=== PATIENT | male | born 1945 | race African-American/Black ===

== ENCOUNTER 2017-12-25 13:25 | Inpatient (IN) | payer MEDICARE, MEDICAID ==
[~2017-12-25] VITALS: Ht 177.8 cm; Wt 68.0 kg
--- NOTE | 2017-12-25 13:47 | NUR ---
PT DOES NOT REMEMBER HIS HOME MEDICATION NAMES.
--- NOTE | 2017-12-25 14:07 | NUR ---
URINE SENT/BLOOD DRAWN
[2017-12-25 14:32] LABS: *BILIRUBIN,URIN NEGATIVE (NEGATIVE); *BLOOD, URINE 1+ (NEGATIVE); *COLOR,URINE YELLOW (YELLOW); *KETONES,URINE NEGATIVE (NEGATIVE); *PROTEIN,URINE 2+ (NEGATIVE); *UROBILINOGEN,URINE 0.2 E.U./dl (NORMAL); LEUKOCYTE ESTERASE ,URINE NEGATIVE (NEGATIVE); NITRITE, URINE NEGATIVE (NEGATIVE); PH,URINE 5.5 (5.0-8.0); UGLUCOSE NEGATIVE (NEGATIVE)
[2017-12-25 14:37] LABS: *CLARITY,URINE SLIGHTLY HAZY (CLEAR)
[2017-12-25 14:49] LABS: WBC,URINE 0-3 /HPF (0-3)
[2017-12-25 14:50] LABS: *AMPHETAMINE, URINE NEGATIVE (NEGATIVE); *BARBITURATE, URINE NEGATIVE (NEGATIVE); *CANNABINOID, URINE NEGATIVE (NEGATIVE); *COCCAINE, URINE NEGATIVE (NEGATIVE); *OPIATE, URINE NEGATIVE (NEGATIVE); *PHENCYCLIDINE SCREEN,URINE NEGATIVE (NEGATIVE); BACTERIA,URINE NONE SEEN /HPF (NONE SEEN); SQUAMOUS EPITHELIAL CELL,UR FEW /HPF (NONE SEEN)
[2017-12-25 15:00] LABS: BASOPHILS # (AUTO) 0.1 K/uL (0.0-8.0); BASOPHILS % (AUTO) 1.6 % (0.0-2.0); EOSINOPHILS # (AUTO) 0.2 K/uL (0.0-0.7); EOSINOPHILS % (AUTO) 4.2 % (0.0-7.0); HEMATOCRIT 28.4 % (36.7-47.1); HEMOGLOBIN 8.9 g/dL (12.5-16.3); LYMPHOCYTES # (AUTO) 1.3 K/uL (20.0-40.0); LYMPHOCYTES % (AUTO) 21.8 % (20.5-51.5); MEAN CORPUSCULAR HEMOGLOBIN 25.9 uug (23.8-33.4); MEAN CORPUSCULAR HGB CONC 32 g/dL (32.5-36.3); MEAN CORPUSCULAR VOLUME 82.2 fL (73.0-96.2); MONOCYTES # (AUTO) 0.3 K/uL (2.0-10.0); MONOCYTES % (AUTO) 5.5 % (0.0-11.0); NEUTROPHILS % (AUTO) 66.9 % (38.5-71.5); PLATELET COUNT (AUTO) 264 K/uL (152-348); RED BLOOD CELL COUNT(AUTO) 3.45 MIL/uL (4.06-5.63)
[2017-12-25 15:07] LABS: CARBON DIOXIDE 29 mmol/L (21-32); CHLORIDE 105 mmol/L (98-107); CREATININE 0.9 mg/dL (0.6-1.3); GLUCOSE 92 mg/dL (74-106); POTASSIUM 3.1 mmol/L (3.5-5.1); UREA NITROGEN, BLOOD 21 mg/dL (7-18)
[2017-12-25 15:12] LABS: ALANINE AMINOTRANSFERASE 49 U/L (16-63); ALKALINE PHOSPHATASE 62 U/L (50-136); ASPARTATE AMINOTRANSFERASE 49 U/L (15-37); BILIRUBIN,DIRECT 0.1 mg/dL (0.0-0.2); BILIRUBIN,TOTAL 0.4 mg/dL (0.2-1.0); TOTAL PROTEIN, SERUM 7.6 g/dL (6.4-8.2)
[2017-12-25 15:14] LABS: ACETAMINOPHEN < 2.0 ug/mL (10-30)
[2017-12-25 15:19] LABS: ETHANOL < 3 MG/DL (0-0)
[2017-12-25] MEDS ORDERED: MAGNESIUM HYDROXIDE 30 ML LIQUID UDC PO PRN (16:45)
[2017-12-25] MEDS ORDERED: MAG HYDROX/AL HYDROX/SIMETH 30 ML LIQUID UDC PO PRN (16:45)
[2017-12-25] MEDS ORDERED: AMLO10TA2 PO (17:17)
[2017-12-25] MEDS ORDERED: ATEN50TA PO (17:17)
[2017-12-25] MEDS ORDERED: BENA5TAB2 PO (17:17)
[2017-12-25] MEDS: CLONAZEPAM 0.5 MG TABLET PO SCH (18:17)
[2017-12-25 18:21] VITALS: BP 164/71
--- NOTE | 2017-12-25 19:24 | NUR ---
rec d pt confused and rambling in speech refused to sign any admit papers and refused to answer questions for admit process , pt very confused and non compliant try ing at times too leave hospital 'I DONT WANT TO STAY HERE'tinue to monitor for safety
[2017-12-25 20:15] VITALS: BP 149/62
[2017-12-25] MEDS ORDERED: POTASSIUM CHLORIDE 20 MEQ TAB.PRT.SR PO ONE (21:00)
[2017-12-25] MEDS: TEMAZEPAM 7.5 MG CAPSULE PO PRN (21:21)
--- NOTE | 2017-12-25 22:00 | NUR ---
received to care, at start of shift, wandering around the activity room, talking to self, appearing distracted by internal stimuli, speech mostly garbled, non interactive with peers, but pleasant upon approach. compliant with medications, and staff direction. PRN restoril was given at 2120. as of 2199, he remains awake in the dayroom, talking to self, and eating a snack. states people are trying to kill him. reassured that he is safe. will continue to monitor closely.
--- NOTE | 2017-12-25 23:00 | NUR ---
remains awake, in day room. redirected to his room, and bed. will continue to monitor closely.
--- NOTE | 2017-12-25 23:30 | NUR ---
appears to be asleep. no distress noted.
[2017-12-26] MEDS: CLONAZEPAM 0.5 MG TABLET PO SCH ×3 (03:03→20:32)
--- NOTE | 2017-12-26 03:03 | NUR ---
pt is now awake. appears restless, talking to self in the dining room. PRN klonopin was given, along with a snack. will continue to monitor closely.
--- NOTE | 2017-12-26 03:30 | NUR ---
pt went back to bed, and is now asleep. no distress noted. will continue to monitor closely.
[2017-12-26 07:30] VITALS: BP 126/63
[2017-12-26] MEDS: BENAZEPRIL HCL 5 MG TABLET PO SCH (08:42)
[2017-12-26] MEDS: AMLODIPINE 10 MG TABLET PO SCH (08:42)
[2017-12-26] MEDS: NICOTINE 14 MG/24HR PATCH TD SCH ×2 (08:43→08:50)
[2017-12-26] MEDS: ATENOLOL 50 MG TABLET PO SCH (08:43)
[2017-12-26 16:02] VITALS: BP 154/49
[2017-12-26] MEDS: DIVALPROEX SPRINKLE 125 MG CAP.SPRINK PO SCH (17:58)
[2017-12-26 20:11] VITALS: BP 148/52
--- NOTE | 2017-12-26 21:00 | NUR ---
pt was observed to be drooling excessively. will endorse to morning shift, in the AM.
[2017-12-26] MEDS: OLANZAPINE ZYDIS 5 MG TAB.RAPDIS PO SCH (21:41)
--- NOTE | 2017-12-26 22:00 | NUR ---
received to care, at start of shift, wandering around the activity room, talking to self, appearing distracted by internal stimuli, appearing restless. cleaning the tables, speech mostly garbled, non interactive with peers, but pleasant upon approach. compliant with medications, and staff direction. SUSAN posey was given at 2031, for anxiety, which was slightly effective in calming him down. as of 2199, he remains awake in the dayroom, talking to self, and eating a snack. states people are trying to kill him. reassured that he is safe. will continue to monitor closely.
[2017-12-26] MEDS: TEMAZEPAM 7.5 MG CAPSULE PO PRN (23:10)
--- NOTE | 2017-12-26 23:10 | NUR ---
remains awake. PRN restoril, given, for insomnia.
--- NOTE | 2017-12-26 23:50 | NUR ---
assited to his room, at 2330. as of 0, he appears to be asleep. no distress noted. will continue to monitor closely.
[2017-12-27 07:30] VITALS: BP 152/65
[2017-12-27] MEDS: DIVALPROEX SPRINKLE 125 MG CAP.SPRINK PO SCH ×3 (08:40→16:24)
[2017-12-27] MEDS: AMLODIPINE 10 MG TABLET PO SCH (08:41)
[2017-12-27] MEDS: ATENOLOL 50 MG TABLET PO SCH (08:41)
[2017-12-27] MEDS: BENAZEPRIL HCL 5 MG TABLET PO SCH (08:41)
[2017-12-27] MEDS: NICOTINE 14 MG/24HR PATCH TD SCH (08:44)
--- NOTE | 2017-12-27 14:42 | NUR ---
Gps/Sole Blacker- Ambulatory, gait slightly unsteady, shuffles when walking. Showered self with lots of encouragement, and in return ,he can have coffee. Stayed in the activity room most of the morning.
--- NOTE | 2017-12-27 14:54 | NUR ---
Gps/Can Cutter- Dr Ball was in to see patient, informed of pt.increased salivations and drooling .
[2017-12-27 15:02] VITALS: BP 132/58
--- NOTE | 2017-12-27 15:23 | NUR ---
Firearms Report: Cnc Machinist completed and submitted [facility] [employer]arms Report on 12/27/17.
--- NOTE | 2017-12-27 16:07 | NUR ---
Initial DC Instructions: Patient currently resides at [facility] [[address] [place] [address], ]. Due to patient's current mental state, it is unknown if the patient wishes to return to the [facility]. Spoke with Sunday at the [facility] ([phone]) who states that they will accept the patient back upon discharge. SW will continue to collaborate with pt and MD regarding appropriate discharge disposition for this patient. SW will form a safe and proper discharge plan.
[2017-12-27 20:00] VITALS: BP 134/62
[2017-12-27] MEDS: OLANZAPINE ZYDIS 5 MG TAB.RAPDIS PO SCH (21:01)
[2017-12-27] MEDS: TEMAZEPAM 7.5 MG CAPSULE PO PRN (22:02)
--- NOTE | 2017-12-27 22:02 | NUR ---
received to care, sitting in the dining room, talking to self, appearing to be distracted by internal stimuli. remains restless at times, but more directable. compliant with medications and staff direction. as of 2201, he remains awake, so PRN restoril was given at this time. no distress noted. currently eating a snack. will continue to monitor closely.
--- NOTE | 2017-12-27 22:40 | NUR ---
pt was assisted to bed at 2219. as of 2239, he appears to be asleep. no distress noted. will continue to monitor closely.
--- NOTE | 2017-12-28 06:00 | NUR ---
slept 2.5 hours. last night. remains restless at times, but easy to redirect. currently talking to self, quietly. will continue to monitor closely.
[2017-12-28 07:30] VITALS: BP 137/59
[2017-12-28] MEDS: DIVALPROEX SPRINKLE 125 MG CAP.SPRINK PO SCH ×3 (08:12→17:24)
[2017-12-28] MEDS: AMLODIPINE 10 MG TABLET PO SCH (08:12)
[2017-12-28] MEDS: BENAZEPRIL HCL 5 MG TABLET PO SCH (08:12)
[2017-12-28] MEDS: NICOTINE 14 MG/24HR PATCH TD SCH (08:13)
[2017-12-28] MEDS: ATENOLOL 50 MG TABLET PO SCH ×2 (08:14→08:17)
[2017-12-28] MEDS: BENZTROPINE MESYLATE 1 MG TABLET PO SCH ×2 (10:21→17:24)
[2017-12-28 15:42] VITALS: BP 125/66
--- NOTE | 2017-12-28 15:53 | NUR ---
Gps/Check Viewer- Speech so garbled unable to understand what he is trying to tell staff. Encouraged and instructed to speak slowly . Ambulates around , preferred to stay in the activity room , noted sleeping on his chair .
[2017-12-28] MEDS: OLANZAPINE ZYDIS 5 MG TAB.RAPDIS PO SCH (20:05)
[2017-12-28 20:10] VITALS: BP 126/58
[2017-12-29 07:30] VITALS: BP 135/56
[2017-12-29 08:14] LABS: CARBON DIOXIDE 37 mmol/L (21-32); CHLORIDE 99 mmol/L (98-107); CREATININE 0.9 mg/dL (0.6-1.3); GLUCOSE 97 mg/dL (74-106); UREA NITROGEN, BLOOD 23 mg/dL (7-18)
[2017-12-29] MEDS: CLONAZEPAM 0.5 MG TABLET PO PRN ×2 (08:14→16:26)
[2017-12-29] MEDS: BENZTROPINE MESYLATE 1 MG TABLET PO SCH ×2 (08:24→16:33)
[2017-12-29] MEDS: DIVALPROEX SPRINKLE 125 MG CAP.SPRINK PO SCH ×3 (08:24→16:33)
[2017-12-29] MEDS: BENAZEPRIL HCL 5 MG TABLET PO SCH (08:24)
[2017-12-29] MEDS: AMLODIPINE 10 MG TABLET PO SCH (08:24)
[2017-12-29] MEDS: NICOTINE 14 MG/24HR PATCH TD SCH (08:25)
[2017-12-29] MEDS: ATENOLOL 50 MG TABLET PO SCH (08:25)
[2017-12-29 15:48] VITALS: BP 114/55
[2017-12-29 19:56] VITALS: BP 130/55
[2017-12-29] MEDS: OLANZAPINE ZYDIS 5 MG TAB.RAPDIS PO SCH (21:00)
[2017-12-30] MEDS: CLONAZEPAM 0.5 MG TABLET PO PRN (07:58)
[2017-12-30] MEDS: DIVALPROEX SPRINKLE 125 MG CAP.SPRINK PO SCH ×2 (08:28→16:34)
[2017-12-30] MEDS: AMLODIPINE 10 MG TABLET PO SCH (08:28)
[2017-12-30] MEDS: BENZTROPINE MESYLATE 1 MG TABLET PO SCH ×2 (08:28→16:34)
[2017-12-30] MEDS: NICOTINE 14 MG/24HR PATCH TD SCH (08:29)
[2017-12-30] MEDS: BENAZEPRIL HCL 5 MG TABLET PO SCH (08:29)
[2017-12-30 08:30] VITALS: BP 138/71
[2017-12-30] MEDS: ATENOLOL 50 MG TABLET PO SCH (08:30)
[2017-12-30 15:35] VITALS: BP 118/47
[2017-12-30 20:23] VITALS: BP 136/64
[2017-12-30] MEDS: OLANZAPINE ZYDIS 5 MG TAB.RAPDIS PO SCH (20:30)
--- NOTE | 2017-12-30 21:00 | NUR ---
RECEIVED PATIENT IN THE DAY ROOM. HE WAS NOTED A/O X 1. HE IS ABLE TO AMBULATE WITH STEADY GAIT AND ABLE TO MAKE HIS NEEDS KNOWN. PT COMPLIANT WITH MEDICATION REGIMENT AT THIS TIME. NO BEHAVIORAL PROBLEMS AT THIS TIME. NO AGGRESSIVE/COMBATIVE BX NOTED. WILL CONTINUE TO MONITOR CLOSELY.
--- NOTE | 2017-12-31 07:05 | NUR ---
pt slept for 30 min through the night. no combative or aggressive bx. pt noted needy.
[2017-12-31 07:30] VITALS: BP 148/84
[2017-12-31] MEDS: DIVALPROEX SPRINKLE 125 MG CAP.SPRINK PO SCH ×2 (08:15→16:33)
[2017-12-31] MEDS: BENZTROPINE MESYLATE 1 MG TABLET PO SCH ×2 (08:15→16:34)
[2017-12-31] MEDS: AMLODIPINE 10 MG TABLET PO SCH (08:16)
[2017-12-31] MEDS: BENAZEPRIL HCL 5 MG TABLET PO SCH (08:16)
[2017-12-31] MEDS: NICOTINE 14 MG/24HR PATCH TD SCH (08:17)
[2017-12-31] MEDS: ATENOLOL 50 MG TABLET PO SCH (08:17)
[2017-12-31 15:52] VITALS: BP 102/54
[2017-12-31 19:48] VITALS: BP 145/50
[2017-12-31] MEDS: OLANZAPINE ZYDIS 5 MG TAB.RAPDIS PO SCH (20:12)
--- NOTE | 2017-12-31 22:00 | NUR ---
received to care, lying in bed, talking to self, pleasant upon approach. compliant with medications and staff direction. as of 2200, he appears to be asleep. no distress noted. will continue to monitor closely.
[2018-01-01] MEDS: ACETAMINOPHEN 325 MG TABLET PO PRN (00:05)
[2018-01-01] MEDS: TEMAZEPAM 7.5 MG CAPSULE PO PRN (00:05)
--- NOTE | 2018-01-01 00:05 | NUR ---
pt is now awake, at nurses station, requesting a snack, which was given, along with PRN restoril, for insomnia. pt is now back in his room, eating. no distress noted. will continue to monitor closely.
--- NOTE | 2018-01-01 00:45 | NUR ---
appears to be asleep. no distress noted.
--- NOTE | 2018-01-01 06:00 | NUR ---
slept 4.0 hours. continues to sleep. no distress noted.
[2018-01-01 08:16] VITALS: BP 151/55
[2018-01-01] MEDS: DIVALPROEX SPRINKLE 125 MG CAP.SPRINK PO SCH ×2 (08:27→17:22)
[2018-01-01] MEDS: BENAZEPRIL HCL 5 MG TABLET PO SCH (08:27)
[2018-01-01] MEDS: BENZTROPINE MESYLATE 1 MG TABLET PO SCH ×2 (08:27→17:22)
[2018-01-01] MEDS: AMLODIPINE 10 MG TABLET PO SCH (08:28)
[2018-01-01] MEDS: ATENOLOL 50 MG TABLET PO SCH (08:28)
[2018-01-01] MEDS: NICOTINE 14 MG/24HR PATCH TD SCH (08:28)
[2018-01-01 16:54] VITALS: BP 126/59
[2018-01-01 20:26] VITALS: BP 114/46
[2018-01-01] MEDS: OLANZAPINE ZYDIS 5 MG TAB.RAPDIS PO SCH (20:40)
--- NOTE | 2018-01-01 22:00 | NUR ---
received to care, sitting in the activity room, pleasant upon approach. compliant with medications and staff direction. as of 2200, he appears to be asleep, after eating a snack. no distress noted. will continue to monitor closely.
[2018-01-02] MEDS: ACETAMINOPHEN 325 MG TABLET PO PRN (01:30)
[2018-01-02] MEDS: TEMAZEPAM 7.5 MG CAPSULE PO PRN (01:30)
--- NOTE | 2018-01-02 01:30 | NUR ---
is now awake, sitting in the dining room, talking to self. PRN restoril was given at this time, and directed back to bed. will continue to monitor closely.
--- NOTE | 2018-01-02 03:00 | NUR ---
appears to be asleep. no distress noted.
[2018-01-02 07:30] VITALS: BP 116/53
--- NOTE | 2018-01-02 07:30 | NUR ---
received to care, sitting in the activity room, pleasant upon approach. compliant with medications and staff direction, ,. no distress noted. will continue to monitor closely.
[2018-01-02] MEDS: BENZTROPINE MESYLATE 1 MG TABLET PO SCH ×2 (08:06→16:09)
[2018-01-02] MEDS: DIVALPROEX SPRINKLE 125 MG CAP.SPRINK PO SCH ×2 (08:06→16:09)
[2018-01-02] MEDS: NICOTINE 14 MG/24HR PATCH TD SCH (08:07)
[2018-01-02] MEDS: BENAZEPRIL HCL 5 MG TABLET PO SCH (08:08)
[2018-01-02] MEDS: AMLODIPINE 10 MG TABLET PO SCH (08:08)
[2018-01-02] MEDS: ATENOLOL 50 MG TABLET PO SCH (08:09)
[2018-01-02 15:51] VITALS: BP 132/61
[2018-01-02 20:00] VITALS: BP 104/43
[2018-01-02] MEDS: CLONAZEPAM 0.5 MG TABLET PO PRN (20:07)
[2018-01-02] MEDS: OLANZAPINE 5 MG TABLET PO SCH (21:37)
--- NOTE | 2018-01-02 22:00 | NUR ---
received to care, lying in bed, talking to self, restless, but pleasant upon approach. PRN klonopin given at 2006, for anxiety. compliant with medications and staff direction. as of 2199, he appears to be asleep. no distress noted. will continue to monitor closely.
[2018-01-03] MEDS: ACETAMINOPHEN 325 MG TABLET PO PRN (01:58)
[2018-01-03] MEDS: TEMAZEPAM 7.5 MG CAPSULE PO PRN (01:59)
--- NOTE | 2018-01-03 01:59 | NUR ---
is now awake, and restless. PRN restoril was given. will continue to monitor closely.
--- NOTE | 2018-01-03 03:00 | NUR ---
appears to be asleep. no distress noted.
--- NOTE | 2018-01-03 05:00 | NUR ---
pt is very unsteady in his gait. appears confused. speech is very garbled. assisted up in the brianna chair for safety. shower given. currently dozing off at nurses station.
[2018-01-03 07:30] VITALS: BP 134/52
[2018-01-03] MEDS: BENZTROPINE MESYLATE 1 MG TABLET PO SCH ×2 (09:49→17:34)
[2018-01-03] MEDS: NICOTINE 14 MG/24HR PATCH TD SCH (09:49)
[2018-01-03] MEDS: DIVALPROEX SPRINKLE 125 MG CAP.SPRINK PO SCH ×2 (09:50→17:34)
[2018-01-03] MEDS: AMLODIPINE 10 MG TABLET PO SCH (09:50)
[2018-01-03] MEDS: BENAZEPRIL HCL 5 MG TABLET PO SCH (09:50)
[2018-01-03] MEDS: ATENOLOL 50 MG TABLET PO SCH (10:26)
[2018-01-03 15:32] VITALS: BP 114/55
--- NOTE | 2018-01-03 19:30 | NUR ---
Received patient from day shift nurse. Patient currently in room sitting in bed. No acute distress noted. Pertinent assessment completed. patient is a/o x1. Able to make needs known. Noted with slurred speech and slight drooling. No behavioral problems at this time. No aggressive/combative actions noted. Vital signs WNL. Room checked for safety. Will continue to monitor through shift.
[2018-01-03 20:24] VITALS: BP 118/69
[2018-01-03] MEDS: OLANZAPINE 5 MG TABLET PO SCH (21:10)
[2018-01-04 07:30] VITALS: BP 134/70
[2018-01-04] MEDS: AMLODIPINE 10 MG TABLET PO SCH (08:17)
[2018-01-04] MEDS: DIVALPROEX SPRINKLE 125 MG CAP.SPRINK PO SCH (08:17)
[2018-01-04] MEDS: ATENOLOL 50 MG TABLET PO SCH (08:18)
[2018-01-04] MEDS: BENAZEPRIL HCL 5 MG TABLET PO SCH (08:18)
[2018-01-04] MEDS: BENZTROPINE MESYLATE 1 MG TABLET PO SCH (08:18)
[2018-01-04] MEDS: NICOTINE 14 MG/24HR PATCH TD SCH (08:23)
--- NOTE | 2018-01-04 09:06 | NUR ---
Discharge Note: Patient will be discharged to [facility] [[address] [place] [address]; [phone]] via ambulance. Spoke with staff, Sunday, at patient's senior living ([phone]) who is aware and agreeable with discharge plans. Patient is aware and agreeable with discharge plans. Patient will follow-up at the facility with Dr. Mckeon (Exchange Engineer) and Dr. Cortez (Psychiatrist).
--- NOTE | 2018-01-04 09:07 | NUR ---
Patient noted sitting in dining room awaiting breakfast tray, no behaviors noted at this time, no complaints of pain, no signs of distress, refused nicotine patch stating,"I'll smoke when I leave". Patient took all other AM medications. All needs met at this time, will continue to monitor
--- NOTE | 2018-01-04 11:45 | NUR ---
Gps/Nursing- Report was given to [facility]. in [facility], report was given to Ondina (Intake) . Ambulance will supervisor opening and picking patient at 1445 as scheduled
--- NOTE | 2018-01-04 15:00 | NUR ---
Gps/Motorman/Woman- Discharged to [facility].via ambulance , in no distress, no pain noted. All belongings given back to patient (including 2 ID) , pt. wearing his dentures(upper and lower) . Discharged in good spirit with no new complaints noted.
[2018-01-04 15:09] VITALS: BP 122/58
== END 2018-01-04 15:00 | DRG 885 ==
LOC: ER 13:25 → GPS 16:02
PROVIDERS: ADMIT Psychiatry & Neurology Psychiatry; ATTEND Internal Medicine
DX: F25.9 Schizoaffective disorder, unspecified (principal); G93.41 Metabolic encephalopathy; E88.09 Other disorders of plasma-protein metabolism, not elsewhere classified; F03.90 Unspecified dementia, unspecified severity, without behavioral disturbance, psychotic disturbance, mood disturbance, and anxiety; E87.6 Hypokalemia; D50.9 Iron deficiency anemia, unspecified; F32.9 Major depressive disorder, single episode, unspecified; Z87.891 Personal history of nicotine dependence; F41.9 Anxiety disorder, unspecified; I10 Essential (primary) hypertension
CPT/HCPCS: 36415; 80164; 80307; 85025; 93005; A4663; G0480; G0480-TC